=== PATIENT | male | born 1950 | race Caucasian/White ===

== ENCOUNTER 2018-03-07 18:28 | Emergency (ER) | payer MEDICARE, OTHER ==
[~2018-03-07] VITALS: Ht 175.3 cm; Wt 50.0 kg
[2018-03-07] MEDS ORDERED: PLEASE ENTER ALLERGIES MC SCH (20:41)
[2018-03-07] MEDS ORDERED: LIDOCAINE 1%-EPI 1:100K, 20ML SQ ONE (21:00)
[2018-03-07] MEDS ORDERED: LIDOCAINE-MPF 1%, 5ML ONE ×2 (21:02→21:05)
[2018-03-07] MEDS ORDERED: BACITRACIN ZINC OINT 500U/GM, 0.9 GM ONE (21:20)
[2018-03-07 22:58] VITALS: BP 153/80
== END 2018-03-07 23:00 | disposition home or self-care (01) ==
LOC: ED 22:54
DX: S51.812A Laceration without foreign body of left forearm, initial encounter (principal); F43.0 Acute stress reaction; G20 Parkinson's disease; F17.200 Nicotine dependence, unspecified, uncomplicated; X78.1XXA Intentional self-harm by knife, initial encounter; Y93.89 Activity, other specified; Y92.89 Other specified places as the place of occurrence of the external cause; Y99.8 Other external cause status
CPT/HCPCS: 12002; 99283

== ENCOUNTER 2018-09-19 10:39 | Observation (INO) | payer MEDICARE, OTHER ==
[~2018-09-19] VITALS: Ht 182.9 cm; Wt 54.1 kg
[2018-09-19 11:33] LABS: BASOPHILS % (AUTO) 0 % (0-1); EOSINOPHILS # (AUTO) 0.03 x10^3/uL (0-0.4); EOSINOPHILS % (AUTO) 1 % (1-7); LYMPHOCYTES # (AUTO) 0.59 x10^3/uL (1-3.4); LYMPHOCYTES % (AUTO) 8 % (22-44); MD NO; MEAN CORPUSCULAR HEMOGLOBIN 31.9 pg (27.5-34.5); MEAN CORPUSCULAR VOLUME 99.9 fL (81-97); MEAN PLATELET VOLUME 7.5 fL (7.4-10.4); MONOCYTES # (AUTO) 0.57 x10^3/uL (0.2-0.8); MONOCYTES % (AUTO) 8 % (2-9); NEUTROPHILS % (AUTO) 83 % (42-75); PLATELET COUNT 246 x10^3/uL (130-400); RED BLOOD COUNT 4.17 x10^6/uL (4.38-5.82); RED CELL DISTRIBUTION WIDTH 14.1 % (9.4-14.8)
[2018-09-19 11:44] LABS: ALANINE AMINOTRANSFERASE 23 U/L (12-78); ALBUMIN 3.4 g/dL (3.4-5.0); ANION GAP 7 mmol/L (5-15); CALCIUM 9.2 mg/dL (8.5-10.1); CHLORIDE 103 mmol/L (98-107); CREATININE 0.75 mg/dL (0.7-1.3)
[2018-09-19 11:46] LABS: ALKALINE PHOSPHATASE 110 U/L (45-117); BILIRUBIN,TOTAL 0.4 mg/dL (0.2-1.0); CREATINE KINASE, TOTAL 147 U/L (39-308); TOTAL PROTEIN 7.4 g/dL (6.4-8.2)
--- NOTE | 2018-09-19 12:34 | NUR ---
FEEDING TUBE PATENCY CHECKED. FLOWS WELL. STRAIGHT CATH'D AT THIS TIME.
[2018-09-19 12:48] LABS: MICROSCOPIC NOT IND
[2018-09-19 12:56] LABS: CULTURE INDICATED? NO
[2018-09-19] MEDS ORDERED: CARB1TAB2 GT (13:04)
[2018-09-19] MEDS ORDERED: IBUP100O32 GT (13:09)
[2018-09-19] MEDS ORDERED: [UNRECOGNIZED DRUG - CODE] GT (13:10)
[2018-09-19] MEDS ORDERED: MIRT30TA4 GT (13:11)
[2018-09-19] MEDS ORDERED: NICO-486 TD (13:12)
--- NOTE | 2018-09-19 13:13 | NUR ---
UPDATED DR. PULIDO THAT FEEDING TUBE IS PATENT AND THAT URINE WAS COLLECTED AND SENT. ALSO NOTIFIED DR. PULIDO THAT WE ARE UNABLE TO LOCATE ANY FAMILY OR NEXT-OF-KIN OR CAREGIVER FOR PATIENT WITH PHONE NUMBER ON FILE. PATIENT IS TO BE ADMITTED FOR SOCIAL REASONS/ INBABILITY TO CARE FOR SELF.
--- NOTE | 2018-09-19 13:37 | NUR ---
TASK RN: PT ASSISTED OOB TO COMMODE X 2 PERSON ASSIST. +LARGE FORMED ROSSY COLORED BM. RTD TO BED X 2 ASSIST. WAFFLE MATTRESS PLACED ON BED FOR COMFORT AND SKIN PROTECTION. MONITORS IN PLACE, VSS.
--- NOTE | 2018-09-19 13:40 | NUR ---
JAZMIN, DR PAVON AT BEDSIDE, SBAR RPT PROVIDED
[2018-09-19] MEDS ORDERED: hydrALAzine 20 MG/ML, 1ML IVPush PRN (14:00)
[2018-09-19] MEDS ORDERED: [UNRECOGNIZED DRUG - REMARK] GT SCH (14:00)
[2018-09-19] MEDS ORDERED: ONDANSETRON 2MG/ML, 2ML IVPush PRN (14:00)
[2018-09-19] MEDS ORDERED: morphine SULFATE 10 MG/ML, 1ML IVPush PRN (14:00)
[2018-09-19] MEDS ORDERED: IBUPROFEN 100 MG/5 ML UDC GT PRN (14:00)
--- NOTE | 2018-09-19 14:46 | NUR ---
[facility] CALLED TO REQUEST A TUBE FEEDING PUMP AND TUBING. REBEKA IN [facility] TO BRING UP.
--- NOTE | 2018-09-19 14:50 | NUR ---
MESSAGE LEFT WITH DIET OFFICE REQUESTING TUBE FEEDING LIQUID.
[2018-09-19] MEDS ORDERED: NICOTINE 14MG/24 HR PATCH.TD24 ONE (14:53)
[2018-09-19] MEDS ORDERED: ENOXAPARIN 40 MG/0.4 ML ONE (14:53)
[2018-09-19] MEDS: NICOTINE 7 MG/24 HR PATCH.TD24 TD SCH (15:18)
--- NOTE | 2018-09-19 15:26 | NUR ---
FELIZ, ALLERGIST/PEDIATRIC PULMONOLOGIST, CALLED AND CONSULTED VIA PHONE FOR JEVITY 1.5 RATE REQUEST. FELIZ TO CALL BACK.
[2018-09-19] MEDS: CARBIDOPA/LEVODOPA 25 MG/100 MG TABLET GT SCH ×2 (15:31→21:03)
[2018-09-19] MEDS: ENOXAPARIN 30 MG/0.3 ML SQ SCH (15:38)
--- NOTE | 2018-09-19 15:40 | NUR ---
SINEMET CRUSHED AND GIVEN THROUGH FEEDING TUBE. 240MLS FREE WATER GIVEN FOR HYDRATION. VS UPDATED AND WNL. PT RESTING AT THIS TIME.
--- NOTE | 2018-09-19 15:52 | NUR ---
MANOHAR PEMBERTON AT BEDSIDE CONSULTING ON PATIENT. GIVEN BY MANOHAR PEMBERTON, TUBE FEEDING STARTED AT 45MLS/HOUR WITH PUMP SET TO ALSO DELIVER 35MLS OF WATER FLUSH PER HOUR, TO MEET PATIENT'S HYDRATION/NUTRITION NEEDS. MANOHAR PEMBERTON TO FOLLOW.
--- NOTE | 2018-09-19 17:42 | NUR ---
SUREKHAARNULFO GONZALEZ . Addendum: 09/19/18 at 1842 by STARR CAREGIVER, MISS IRBY CALLED TO CHECK ON PATIENT. HER CELL PHONE IS .
[2018-09-19] MEDS ORDERED: GLYC1TAB PO (17:44)
--- NOTE | 2018-09-19 19:09 | NUR ---
BEDSIDE REPORT RECEIVED FROM HEATHER RNS. PT RESTING CALMLY IN BED. PT JUST REPOSITIONED IN BED
--- NOTE | 2018-09-19 20:53 | NUR ---
REPORT TO MANINDER BALDWIN FOR ROOM 377
[2018-09-19] MEDS ORDERED: IBUPROFEN 600 MG TABLET ONE (20:54)
[2018-09-19] MEDS ORDERED: IBUPROFEN 100 MG/5 ML UDC ONE (20:57)
[2018-09-19] MEDS: MIRTAZAPINE 30 MG TABLET GT SCH (21:03)
[2018-09-19 21:23] VITALS: BP 140/86
[2018-09-20] MEDS ORDERED: ARTIFICIAL TEARS 15 DROP/ML BOTTLE EACHEYE PRN (00:30)
[2018-09-20 01:33] VITALS: BP 142/90
[2018-09-20] MEDS: ENOXAPARIN 30 MG/0.3 ML SQ SCH ×2 (02:17→15:42)
[2018-09-20 05:25] LABS: BASOPHILS # (AUTO) 0.01 x10^3/uL (0-0.1); BASOPHILS % (AUTO) 0 % (0-1); EOSINOPHILS # (AUTO) 0.12 x10^3/uL (0-0.4); EOSINOPHILS % (AUTO) 2 % (1-7); LYMPHOCYTES # (AUTO) 0.52 x10^3/uL (1-3.4); LYMPHOCYTES % (AUTO) 10 % (22-44); MD NO; MEAN CORPUSCULAR HEMOGLOBIN 32.1 pg (27.5-34.5); MEAN CORPUSCULAR HGB CONC 32.7 g/dL (33.2-36.2); MEAN CORPUSCULAR VOLUME 98.4 fL (81-97); MEAN PLATELET VOLUME 7.4 fL (7.4-10.4); MONOCYTES % (AUTO) 13 % (2-9); NEUTROPHILS # (AUTO) 3.97 x10^3/uL (1.8-6.8); NEUTROPHILS % (AUTO) 75 % (42-75); PLATELET COUNT 240 x10^3/uL (130-400); RED BLOOD COUNT 4.18 x10^6/uL (4.38-5.82); RED CELL DISTRIBUTION WIDTH 13.8 % (9.4-14.8)
[2018-09-20 05:27] LABS: ALBUMIN 3.4 g/dL (3.4-5.0); ANION GAP 8 mmol/L (5-15); CALCIUM 9.4 mg/dL (8.5-10.1); CHLORIDE 103 mmol/L (98-107); CHOLESTEROL, TOTAL 144 mg/dL (140-239); TRIGLYCERIDES 93 mg/dL (50-200); VLDL CHOLESTEROL 19 mg/dL (0-25)
[2018-09-20 05:40] LABS: ALANINE AMINOTRANSFERASE 13 U/L (12-78); ALKALINE PHOSPHATASE 117 U/L (45-117); BILIRUBIN,TOTAL 0.4 mg/dL (0.2-1.0); CHOL/HDL RATIO 2.2; CREATININE 0.73 mg/dL (0.7-1.3); HDL CHOL % 45 % (26-37); HDL CHOLESTEROL (DIRECT) 65 mg/dL (40-60); LDL CHOLESTEROL,CALCULATED 60 mg/dL (54-169); LDL/HDL RATIO 0.9 (0.5-3.0); PREALBUMIN 15.3 mg/dL (20.0-40.0); THYROID STIMULATING HORMONE 0.656 mIU/L (0.358-3.740); TOTAL PROTEIN 7.4 g/dL (6.4-8.2)
[2018-09-20] MEDS: CARBIDOPA/LEVODOPA 25 MG/100 MG TABLET GT SCH (06:40)
[2018-09-20 07:18] VITALS: BP 120/77
[2018-09-20 14:19] VITALS: BP 153/71
[2018-09-20] MEDS: NICOTINE 7 MG/24 HR PATCH.TD24 TD SCH (15:42)
[2018-09-20] MEDS ORDERED: POTASSIUM CHLORIDE 20 MEQ PACKET PO SCH (17:00)
[2018-09-20] MEDS ORDERED: ERGOCALCIFEROL 50,000 UNIT CAPSULE PO SCH (17:00)
[2018-09-20] MEDS ORDERED: POTASSIUM CHLORIDE 20 MEQ/10 ML IV SCH (18:30)
[2018-09-20 19:15] VITALS: BP 126/79
[2018-09-20] MEDS: MIRTAZAPINE 30 MG TABLET GT SCH (20:57)
[2018-09-20] MEDS: POTASSIUM CHLORIDE 10% 20 MEQ/15 ML UDC PO SCH (20:57)
[2018-09-21] MEDS: POTASSIUM CHLORIDE 10% 20 MEQ/15 ML UDC PO SCH (00:14)
[2018-09-21 01:14] VITALS: BP 131/83
[2018-09-21 06:47] LABS: ANION GAP 5 mmol/L (5-15); CALCIUM 9.5 mg/dL (8.5-10.1); CHLORIDE 103 mmol/L (98-107); CREATININE 0.85 mg/dL (0.7-1.3)
[2018-09-21 08:44] VITALS: BP 144/83
[2018-09-21] MEDS: ENOXAPARIN 30 MG/0.3 ML SQ SCH (08:58)
[2018-09-21 14:00] VITALS: BP 128/85
[2018-09-21] MEDS: NICOTINE 7 MG/24 HR PATCH.TD24 TD SCH (14:00)
[2018-09-21] MEDS ORDERED: ERGO500017 PO (14:32)
== END 2018-09-21 19:00 | disposition home or self-care (01) ==
LOC: ED 13:17 → EDIP 13:18 → INTOOBSV 13:18 → ED 13:33 → 3NE 21:19
PROVIDERS: ADMIT Internal Medicine; ATTEND Internal Medicine
DX: R13.10 Dysphagia, unspecified (principal); R62.7 Adult failure to thrive; E46 Unspecified protein-calorie malnutrition; R64 Cachexia; F17.200 Nicotine dependence, unspecified, uncomplicated; G20 Parkinson's disease; F02.80 Dementia in other diseases classified elsewhere, unspecified severity, without behavioral disturbance, psychotic disturbance, mood disturbance, and anxiety; J44.9 Chronic obstructive pulmonary disease, unspecified; E55.9 Vitamin D deficiency, unspecified; R54 Age-related physical debility; R06.82 Tachypnea, not elsewhere classified; Z68.1 Body mass index [BMI] 19.9 or less, adult
CPT/HCPCS: 36415; 70450; 70551; 71045; 74230; 80048; 80053; 80061; 81003; 82306; 82550; 83690; 83735; 84100; 84134; 84443; 85025; 92611; 96372; 97163; 97167; 99284; G0378; J1650

== ENCOUNTER 2018-10-11 04:51 | Inpatient (IN) | payer MEDICARE, OTHER ==
[~2018-10-11] VITALS: Ht 182.9 cm; Wt 50.0 kg
[~2018-10-11 04:51] MED LIST: CARB1TAB2 GT; ERGO500017 PO; GLYC1TAB PO; IBUP100O32 GT; MIRT30TA4 GT; NICO-486 TD; [UNRECOGNIZED DRUG - CODE] GT
[2018-10-11] MEDS ORDERED: glycopyrrolate (05:09)
[2018-10-11] MEDS ORDERED: mirtazapine (05:10)
--- NOTE | 2018-10-11 05:10 | NUR ---
PT BIB [facility] FOR SOB. PT WAS FOUND AT HOME TO BE 80% RA. 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 ROCK STAR ON. SINUS TACH NOTED. EKG DONE. PT IS A&O X4 BUT COMMUNICATES WITH THUMBS UP OR THRUMBS DOWN, DUE TO ACUITY OF ILLNESS. PT SEEN BY DR MOULTON. AWARE OF VS. CALL LIGHT IN PLACE. WILL CONTINUE TO MONITOR.
[2018-10-11] MEDS ORDERED: SODIUM CHLORIDE FLUSH 10ML SYR IVF ONE (05:30)
[2018-10-11] MEDS ORDERED: ACETAMINOPHEN 650 MG/20.3 ML UDC GT ONE (05:30)
[2018-10-11] MEDS ORDERED: SODIUM CHLORIDE 0.9% 1,000ML IVBOLUS ONE ×2 (05:30)
[2018-10-11 05:48] LABS: BASOPHILS % (AUTO) 0 % (0-1); EOSINOPHILS % (AUTO) 0 % (1-7); LYMPHOCYTES % (AUTO) 4 % (22-44); MD NO; MEAN CORPUSCULAR HEMOGLOBIN 32.2 pg (27.5-34.5); MEAN CORPUSCULAR HGB CONC 32.7 g/dL (33.2-36.2); MEAN CORPUSCULAR VOLUME 98.4 fL (81-97); MEAN PLATELET VOLUME 7.8 fL (7.4-10.4); MONOCYTES # (AUTO) 0.72 x10^3/uL (0.2-0.8); MONOCYTES % (AUTO) 6 % (2-9); NEUTROPHILS # (AUTO) 11.37 x10^3/uL (1.8-6.8); NEUTROPHILS % (AUTO) 90 % (42-75); PLATELET COUNT 254 x10^3/uL (130-400); RED BLOOD COUNT 4.05 x10^6/uL (4.38-5.82); RED CELL DISTRIBUTION WIDTH 14.1 % (9.4-14.8)
[2018-10-11] MEDS ORDERED: ACETAMINOPHEN 650 MG/20.3 ML UDC ONE (05:52)
[2018-10-11] MEDS ORDERED: PIPERACILLIN/TAZO/PMX 3.375GM 50 ML ONE (05:58)
[2018-10-11] MEDS ORDERED: methylPREDNISolone SOD SUCC 125 MG/2 ML ONE (05:58)
[2018-10-11] MEDS ORDERED: methylPREDNISolone SOD SUCC 125 MG/2 ML IVP ONE (06:00)
[2018-10-11] MEDS ORDERED: PIPERACILLIN/TAZO/PMX 3.375GM 50 ML IV ONE (06:00)
--- NOTE | 2018-10-11 06:01 | NUR ---
BOTH BLOOD CULTURES DRAWN BEFORE ABX GIVEN
[2018-10-11 06:03] LABS: ALANINE AMINOTRANSFERASE 25 U/L (12-78); ANION GAP 9 mmol/L (5-15); CALCIUM 8.9 mg/dL (8.5-10.1); CHLORIDE 103 mmol/L (98-107)
[2018-10-11 06:08] LABS: ALKALINE PHOSPHATASE 105 U/L (45-117); BILIRUBIN,TOTAL 0.7 mg/dL (0.2-1.0); CREATININE 0.76 mg/dL (0.7-1.3); TOTAL PROTEIN 7.7 g/dL (6.4-8.2)
[2018-10-11] MEDS ORDERED: ALBUTEROL/IPRATROPIUM 2.5MG/0.5MG, 3 ML ONE (06:19)
[2018-10-11] MEDS: ALBUTEROL/IPRATROPIUM 2.5MG/0.5MG, 3 ML NPPB SCH (06:23)
[2018-10-11 06:25] LABS: MICROSCOPIC INDICATED
[2018-10-11 06:33] LABS: CULTURE INDICATED? YES
--- NOTE | 2018-10-11 06:40 | NUR ---
PT RESTING IN ROOM. VS STABLE. ADMINISTRATIVE ASSOCIATE ON. CALL LIGHT IN PLACE. WILL CONTINUE TO MONITOR.
--- NOTE | 2018-10-11 06:55 | NUR ---
REPORT GIVEN TO DENNY CODY
[2018-10-11 08:00] VITALS: BP 97/56
[2018-10-11] MEDS ORDERED: LACT10SO28 PO (09:16)
[2018-10-11] MEDS ORDERED: GLYC1TAB PEG (09:16)
[2018-10-11] MEDS ORDERED: SENN8.6T98 PEG (09:16)
[2018-10-11] MEDS ORDERED: MIRT30TA4 PEG (09:16)
[2018-10-11] MEDS ORDERED: hydrALAzine 20 MG/ML, 1ML IVPush PRN (11:00)
[2018-10-11] MEDS ORDERED: morphine SULFATE 10 MG/ML, 1ML IVPush PRN (11:00)
[2018-10-11] MEDS ORDERED: ONDANSETRON 2MG/ML, 2ML IVPush PRN (11:00)
[2018-10-11] MEDS: NICOTINE 21 MG/24 HR PATCH.TD24 TD SCH (11:00)
[2018-10-11] MEDS ORDERED: BISACODYL 10 MG SUPP PR PRN (11:00)
[2018-10-11] MEDS ORDERED: LABETALOL 5MG/ML, 20ML IVPush PRN (11:00)
[2018-10-11 12:02] LABS: HCT (SEDRATE) 34.5 % (39.2-51.8)
[2018-10-11] MEDS: ENOXAPARIN 40 MG/0.4 ML SQ SCH (12:03)
[2018-10-11] MEDS: methylPREDNISolone SOD SUCC 40 MG/ML IVPush SCH ×3 (12:03→23:26)
[2018-10-11] MEDS: PIPERACILLIN/TAZO/PMX 3.375GM 50 ML IV SCH ×3 (12:05→23:26)
[2018-10-11 12:21] LABS: FREE T4 (FREE THYROXINE) 1.37 ng/dL (0.76-1.46); THYROID STIMULATING HORMONE 0.685 mIU/L (0.358-3.740)
[2018-10-11 13:23] VITALS: BP 96/55
[2018-10-11 13:37] LABS: HEMOGLOBIN A1C 6.2 % (4.2-6.3)
[2018-10-11] MEDS ORDERED: NICO1PAT TD (18:14)
[2018-10-11] MEDS ORDERED: ALBU0.63 NEB (18:14)
[2018-10-11] MEDS ORDERED: BISA10SU2 PR (18:14)
[2018-10-11] MEDS ORDERED: FLUT15.88 NAS (18:14)
[2018-10-11] MEDS ORDERED: DEXT1DRO6 OP (18:14)
[2018-10-11] MEDS ORDERED: MORP1SYR2 SC (18:14)
[2018-10-11 18:44] VITALS: BP 135/63
[2018-10-11] MEDS: FAMOTIDINE 20 MG/2 ML IVPush SCH (20:23)
[2018-10-11] MEDS: MIRTAZAPINE 15 MG TABLET PO SCH (23:26)
[2018-10-12 00:40] VITALS: BP 116/70
[2018-10-12 05:35] LABS: BASOPHILS % (AUTO) 0 % (0-1); EOSINOPHILS % (AUTO) 0 % (1-7); LYMPHOCYTES # (AUTO) 0.28 x10^3/uL (1-3.4); LYMPHOCYTES % (AUTO) 3 % (22-44); MD NO; MEAN PLATELET VOLUME 7.9 fL (7.4-10.4); MONOCYTES # (AUTO) 0.36 x10^3/uL (0.2-0.8); MONOCYTES % (AUTO) 4 % (2-9); NEUTROPHILS # (AUTO) 7.84 x10^3/uL (1.8-6.8); NEUTROPHILS % (AUTO) 93 % (42-75); PLATELET COUNT 242 x10^3/uL (130-400); RED CELL DISTRIBUTION WIDTH 14.1 % (9.4-14.8)
[2018-10-12] MEDS: methylPREDNISolone SOD SUCC 40 MG/ML IVPush SCH ×4 (05:37→23:41)
[2018-10-12] MEDS: PIPERACILLIN/TAZO/PMX 3.375GM 50 ML IV SCH ×4 (05:37→23:41)
[2018-10-12 05:40] LABS: CHLORIDE 107 mmol/L (98-107)
[2018-10-12 05:49] LABS: ANION GAP 8 mmol/L (5-15); CALCIUM 9.1 mg/dL (8.5-10.1); CHOL/HDL RATIO 2.7; CHOLESTEROL, TOTAL 117 mg/dL (140-239); CREATININE 0.73 mg/dL (0.7-1.3); HDL CHOL % 37 % (26-37); HDL CHOLESTEROL (DIRECT) 43 mg/dL (40-60); LDL CHOLESTEROL,CALCULATED 62 mg/dL (54-169); LDL/HDL RATIO 1.4 (0.5-3.0); TRIGLYCERIDES 60 mg/dL (50-200); VLDL CHOLESTEROL 12 mg/dL (0-25)
[2018-10-12 06:36] VITALS: BP 119/67
[2018-10-12] MEDS: FAMOTIDINE 20 MG/2 ML IVPush SCH ×2 (09:55→20:18)
[2018-10-12] MEDS: NICOTINE 21 MG/24 HR PATCH.TD24 TD SCH (11:00)
[2018-10-12] MEDS: ENOXAPARIN 40 MG/0.4 ML SQ SCH (12:18)
[2018-10-12 12:23] VITALS: BP 121/79
[2018-10-12] MEDS ORDERED: ARTIFICIAL TEARS 15 DROP/ML BOTTLE EACHEYE PRN (18:00)
[2018-10-12 18:24] VITALS: BP 124/73
[2018-10-12] MEDS: MIRTAZAPINE 15 MG TABLET PO SCH (20:18)
[2018-10-13 00:48] VITALS: BP 136/78
[2018-10-13] MEDS: PIPERACILLIN/TAZO/PMX 3.375GM 50 ML IV SCH ×3 (05:39→18:00)
[2018-10-13] MEDS: methylPREDNISolone SOD SUCC 40 MG/ML IVPush SCH ×4 (05:40→23:37)
[2018-10-13 05:45] LABS: BASOPHILS % (AUTO) 0 % (0-1); EOSINOPHILS % (AUTO) 0 % (1-7); LYMPHOCYTES # (AUTO) 0.26 x10^3/uL (1-3.4); LYMPHOCYTES % (AUTO) 3 % (22-44); MD NO; MEAN CORPUSCULAR HEMOGLOBIN 32.1 pg (27.5-34.5); MEAN CORPUSCULAR HGB CONC 32.1 g/dL (33.2-36.2); MEAN CORPUSCULAR VOLUME 99.8 fL (81-97); MEAN PLATELET VOLUME 8.1 fL (7.4-10.4); MONOCYTES # (AUTO) 0.44 x10^3/uL (0.2-0.8); MONOCYTES % (AUTO) 5 % (2-9); NEUTROPHILS % (AUTO) 92 % (42-75); PLATELET COUNT 271 x10^3/uL (130-400); RED BLOOD COUNT 3.99 x10^6/uL (4.38-5.82); RED CELL DISTRIBUTION WIDTH 14.3 % (9.4-14.8)
[2018-10-13 05:48] LABS: CHLORIDE 104 mmol/L (98-107)
[2018-10-13 05:52] LABS: HCT (SEDRATE) 39.9 % (39.2-51.8)
[2018-10-13 06:01] LABS: ANION GAP 6 mmol/L (5-15); CREATININE 0.76 mg/dL (0.7-1.3)
[2018-10-13 06:24] VITALS: BP 144/82
[2018-10-13] MEDS: FAMOTIDINE 20 MG/2 ML IVPush SCH ×2 (08:18→21:40)
[2018-10-13] MEDS: ENOXAPARIN 40 MG/0.4 ML SQ SCH (11:11)
[2018-10-13] MEDS: NICOTINE 21 MG/24 HR PATCH.TD24 TD SCH (11:11)
[2018-10-13 12:43] VITALS: BP 145/81
--- NOTE | 2018-10-13 13:41 | NUR ---
REC NPO; ORANGE SHEET WITH DIET RECOMMENDATION AND SWALLOW STRATEGIES POSTED AT BEDSIDE. Addendum: 10/13/18 at 1341 by Maria D PEREZ Amended: Links added.
[2018-10-13] MEDS ORDERED: ALBUTEROL SULFATE 2.5 MG/3 ML NPPB PRN (18:00)
[2018-10-13 18:58] VITALS: BP 129/79
[2018-10-13] MEDS: MIRTAZAPINE 15 MG TABLET PO SCH (21:41)
[2018-10-14 00:25] VITALS: BP 156/94
[2018-10-14] MEDS: PIPERACILLIN/TAZO/PMX 3.375GM 50 ML IV SCH ×4 (00:38→18:41)
[2018-10-14 05:33] LABS: BASOPHILS % (AUTO) 0 % (0-1); EOSINOPHILS % (AUTO) 0 % (1-7); LYMPHOCYTES # (AUTO) 0.24 x10^3/uL (1-3.4); LYMPHOCYTES % (AUTO) 3 % (22-44); MD NO; MEAN CORPUSCULAR HEMOGLOBIN 31.7 pg (27.5-34.5); MEAN CORPUSCULAR HGB CONC 32.1 g/dL (33.2-36.2); MEAN CORPUSCULAR VOLUME 98.8 fL (81-97); MEAN PLATELET VOLUME 7.4 fL (7.4-10.4); MONOCYTES # (AUTO) 0.48 x10^3/uL (0.2-0.8); MONOCYTES % (AUTO) 7 % (2-9); NEUTROPHILS # (AUTO) 6.43 x10^3/uL (1.8-6.8); NEUTROPHILS % (AUTO) 90 % (42-75); PLATELET COUNT 279 x10^3/uL (130-400); RED BLOOD COUNT 4.06 x10^6/uL (4.38-5.82); RED CELL DISTRIBUTION WIDTH 13.5 % (9.4-14.8)
[2018-10-14 05:42] LABS: ANION GAP 6 mmol/L (5-15); CALCIUM 8.7 mg/dL (8.5-10.1); CHLORIDE 101 mmol/L (98-107); CREATININE 0.69 mg/dL (0.7-1.3)
[2018-10-14] MEDS: methylPREDNISolone SOD SUCC 40 MG/ML IVPush SCH ×3 (05:59→17:13)
[2018-10-14 08:51] VITALS: BP 128/74
[2018-10-14] MEDS: FAMOTIDINE 20 MG/2 ML IVPush SCH ×2 (08:54→21:00)
[2018-10-14] MEDS: NICOTINE 21 MG/24 HR PATCH.TD24 TD SCH ×2 (11:00→11:59)
[2018-10-14] MEDS: ENOXAPARIN 40 MG/0.4 ML SQ SCH (11:59)
[2018-10-14 12:48] VITALS: BP 128/85
[2018-10-14 19:34] VITALS: BP 125/80
[2018-10-14] MEDS: MIRTAZAPINE 15 MG TABLET PO SCH (21:00)
[2018-10-15] MEDS: methylPREDNISolone SOD SUCC 40 MG/ML IVPush SCH ×5 (00:13→23:56)
[2018-10-15] MEDS: PIPERACILLIN/TAZO/PMX 3.375GM 50 ML IV SCH ×4 (00:22→19:57)
[2018-10-15 00:25] VITALS: BP 127/85
[2018-10-15 07:45] VITALS: BP 145/82
[2018-10-15] MEDS: FAMOTIDINE 20 MG/2 ML IVPush SCH ×2 (09:03→20:37)
[2018-10-15] MEDS: NICOTINE 21 MG/24 HR PATCH.TD24 TD SCH (11:00)
[2018-10-15 13:11] LABS: CLOSTRIDIUM DIFFICILE ANTIGEN NEGATIVE; CLOSTRIDIUM DIFFICILE TOXIN NEGATIVE (Negative)
[2018-10-15] MEDS ORDERED: LOPERAMIDE 1 MG/5 ML, 10ML UDC PO PRN (13:30)
[2018-10-15] MEDS: ENOXAPARIN 40 MG/0.4 ML SQ SCH (13:38)
[2018-10-15 14:00] VITALS: BP 135/82
[2018-10-15 19:48] VITALS: BP 111/77
[2018-10-15] MEDS: MIRTAZAPINE 15 MG TABLET PO SCH (20:37)
[2018-10-16 01:23] VITALS: BP 124/82
[2018-10-16] MEDS: PIPERACILLIN/TAZO/PMX 3.375GM 50 ML IV SCH ×4 (02:11→23:28)
[2018-10-16 05:07] LABS: BASOPHILS % (AUTO) 0 % (0-1); EOSINOPHILS % (AUTO) 0 % (1-7); LYMPHOCYTES # (AUTO) 0.28 x10^3/uL (1-3.4); LYMPHOCYTES % (AUTO) 3 % (22-44); MD NO; MEAN CORPUSCULAR HEMOGLOBIN 31.4 pg (27.5-34.5); MEAN CORPUSCULAR HGB CONC 31.8 g/dL (33.2-36.2); MEAN CORPUSCULAR VOLUME 98.7 fL (81-97); MEAN PLATELET VOLUME 7.2 fL (7.4-10.4); MONOCYTES % (AUTO) 6 % (2-9); NEUTROPHILS # (AUTO) 7.79 x10^3/uL (1.8-6.8); NEUTROPHILS % (AUTO) 91 % (42-75); PLATELET COUNT 285 x10^3/uL (130-400); RED BLOOD COUNT 4.46 x10^6/uL (4.38-5.82); RED CELL DISTRIBUTION WIDTH 13.4 % (9.4-14.8)
[2018-10-16 05:13] LABS: ANION GAP 6 mmol/L (5-15); CHLORIDE 99 mmol/L (98-107); CREATININE 0.85 mg/dL (0.7-1.3)
[2018-10-16] MEDS: methylPREDNISolone SOD SUCC 40 MG/ML IVPush SCH ×4 (05:37→23:28)
[2018-10-16 07:03] VITALS: BP 147/83
[2018-10-16] MEDS: FAMOTIDINE 20 MG/2 ML IVPush SCH ×2 (10:47→20:18)
[2018-10-16] MEDS: NICOTINE 21 MG/24 HR PATCH.TD24 TD SCH (10:55)
[2018-10-16] MEDS: ENOXAPARIN 40 MG/0.4 ML SQ SCH (12:23)
[2018-10-16 12:52] VITALS: BP 115/73
[2018-10-16 19:18] VITALS: BP 144/93
[2018-10-16] MEDS: MIRTAZAPINE 15 MG TABLET PO SCH (20:18)
[2018-10-17 00:50] VITALS: BP 137/67
[2018-10-17 04:53] LABS: MEAN CORPUSCULAR HEMOGLOBIN 31.7 pg (27.5-34.5); MEAN CORPUSCULAR HGB CONC 32.3 g/dL (33.2-36.2); MEAN PLATELET VOLUME 7.2 fL (7.4-10.4); PLATELET COUNT 344 x10^3/uL (130-400); RED BLOOD COUNT 4.75 x10^6/uL (4.38-5.82); RED CELL DISTRIBUTION WIDTH 13.5 % (9.4-14.8)
[2018-10-17 04:56] LABS: ANION GAP 10 mmol/L (5-15); C-REACTIVE PROTEIN, QUANT 0.78 mg/dL (0.02-0.49); CALCIUM 9.3 mg/dL (8.5-10.1); CHLORIDE 97 mmol/L (98-107); CREATININE 1.02 mg/dL (0.7-1.3)
[2018-10-17] MEDS: methylPREDNISolone SOD SUCC 40 MG/ML IVPush SCH ×4 (05:34→23:43)
[2018-10-17] MEDS: PIPERACILLIN/TAZO/PMX 3.375GM 50 ML IV SCH ×4 (05:34→23:43)
[2018-10-17 05:52] LABS: BASOPHILS % (AUTO) 0 % (0-1); EOSINOPHILS % (AUTO) 0 % (1-7); LYMPHOCYTES # (AUTO) 0.33 x10^3/uL (1-3.4); LYMPHOCYTES % (AUTO) 3 % (22-44); MD SCAN; MONOCYTES # (AUTO) 0.63 x10^3/uL (0.2-0.8); MONOCYTES % (AUTO) 6 % (2-9); NEUTROPHILS # (AUTO) 10.51 x10^3/uL (1.8-6.8); NEUTROPHILS % (AUTO) 92 % (42-75)
[2018-10-17 06:51] VITALS: BP 147/85
[2018-10-17] MEDS: FAMOTIDINE 20 MG/2 ML IVPush SCH ×2 (09:13→20:56)
[2018-10-17] MEDS: NICOTINE 21 MG/24 HR PATCH.TD24 TD SCH (11:43)
[2018-10-17] MEDS: ENOXAPARIN 40 MG/0.4 ML SQ SCH (11:53)
[2018-10-17 12:30] VITALS: BP 132/82
[2018-10-17] MEDS ORDERED: CALC625T65 PO/NG (15:44)
[2018-10-17 19:32] VITALS: BP 130/81
[2018-10-17] MEDS: MIRTAZAPINE 15 MG TABLET PO SCH (20:55)
[2018-10-18 02:24] VITALS: BP 154/89
[2018-10-18] MEDS: methylPREDNISolone SOD SUCC 40 MG/ML IVPush SCH ×2 (05:24→11:33)
[2018-10-18] MEDS: PIPERACILLIN/TAZO/PMX 3.375GM 50 ML IV SCH ×2 (05:24→11:33)
[2018-10-18 06:20] LABS: BASOPHILS % (AUTO) 0 % (0-1); EOSINOPHILS % (AUTO) 0 % (1-7); LYMPHOCYTES # (AUTO) 0.19 x10^3/uL (1-3.4); LYMPHOCYTES % (AUTO) 2 % (22-44); MD NO; MEAN CORPUSCULAR HEMOGLOBIN 31.4 pg (27.5-34.5); MEAN CORPUSCULAR HGB CONC 32.2 g/dL (33.2-36.2); MEAN CORPUSCULAR VOLUME 97.4 fL (81-97); MONOCYTES # (AUTO) 0.69 x10^3/uL (0.2-0.8); MONOCYTES % (AUTO) 6 % (2-9); NEUTROPHILS % (AUTO) 92 % (42-75); PLATELET COUNT 320 x10^3/uL (130-400); RED BLOOD COUNT 4.74 x10^6/uL (4.38-5.82); RED CELL DISTRIBUTION WIDTH 13.6 % (9.4-14.8)
[2018-10-18 06:30] LABS: ANION GAP 7 mmol/L (5-15); CALCIUM 9.4 mg/dL (8.5-10.1); CHLORIDE 99 mmol/L (98-107); CREATININE 0.96 mg/dL (0.7-1.3)
[2018-10-18 07:35] VITALS: BP 130/82
[2018-10-18] MEDS: FAMOTIDINE 20 MG/2 ML IVPush SCH (08:09)
[2018-10-18] MEDS: NICOTINE 21 MG/24 HR PATCH.TD24 TD SCH (11:33)
[2018-10-18] MEDS: ENOXAPARIN 40 MG/0.4 ML SQ SCH (11:43)
[2018-10-18 13:30] VITALS: BP 123/82
== END 2018-10-18 15:27 | disposition hospice, home (50) | DRG 871 ==
LOC: ED 05:37 → EDIP 06:35 → 4EST 07:29
PROVIDERS: ADMIT Internal Medicine; ATTEND Internal Medicine
DX: A41.9 Sepsis, unspecified organism (principal); E43 Unspecified severe protein-calorie malnutrition; J18.0 Bronchopneumonia, unspecified organism; J44.1 Chronic obstructive pulmonary disease with (acute) exacerbation; F33.9 Major depressive disorder, recurrent, unspecified; G23.1 Progressive supranuclear ophthalmoplegia [Steele-Richardson-Olszewski]; J44.0 Chronic obstructive pulmonary disease with (acute) lower respiratory infection; Z68.1 Body mass index [BMI] 19.9 or less, adult; Z66 Do not resuscitate; G20 Parkinson's disease; I73.9 Peripheral vascular disease, unspecified; R13.10 Dysphagia, unspecified; H91.90 Unspecified hearing loss, unspecified ear; R09.02 Hypoxemia; R62.7 Adult failure to thrive; Z87.891 Personal history of nicotine dependence
CPT/HCPCS: 36415; 36600; 84145; 96360; 99291; J3490; J7620; 71045; 80048; 80053; 80061; 81001; 82803; 83036; 83605; 83880; 84439; 84443; 85025; 85651; 86140; 87040; 87070; 87077; 87086; 87186; 87205; 87324; 93005; 93306; 94640; G0378; J1650; J2543; 92523-GN; J2920; J2930; J7030